=== PATIENT | female | born 1960 | race Caucasian/White ===

== ENCOUNTER 2017-09-28 19:05 | Emergency (ER) | payer OTHER, BC ==
[~2017-09-28] VITALS: Ht 154.9 cm; Wt 81.6 kg
[2017-09-28] MEDS ORDERED: XANAX1 MG (20:04)
== END 2017-09-28 22:00 | disposition home or self-care (01) ==
LOC: ER 19:05
DX: S52.124A Nondisplaced fracture of head of right radius, initial encounter for closed fracture (principal); S90.01XA Contusion of right ankle, initial encounter; S60.221A Contusion of right hand, initial encounter; W18.39XA Other fall on same level, initial encounter; Y93.01 Activity, walking, marching and hiking; Y92.488 Other paved roadways as the place of occurrence of the external cause; Y99.8 Other external cause status